=== PATIENT | male | born 1955 | race Caucasian/White ===

== ENCOUNTER 2018-06-09 08:58 | Inpatient (IN) | payer OTHER ==
[2018-05-27 12:45] VITALS: BMI 32.1
--- NOTE | 2018-06-09 07:50 | HP ---
Admitting History and Physical - Admission Chief Complaint: right hip osteoarthritis x years History of Present Illness: 62 year old male presents in regard to her right hip. Long-standing history of right hip osteoarthritis. Patient complains of pain, limited range of motion, difficulty ambulating, and difficulty with activities of daily living. Patient has failed conservative treatment options including PO medications, activity modification, injections, and exercise programs. At this point, patient like to proceed with surgical intervention, right total hip arthroplasty MAKOplasty. History Source: Patient - Past Medical History Cardiovascular: Yes: HTN - Past Surgical History Additional Past Surgical History: See written history & physical. - Smoking History Smoking history: Never smoked Have you smoked in the past 12 months: No - Alcohol/Substance Use Hx Alcohol Use: Yes (OCCASIONALLY) Home Medications - Allergies Allergies/Adverse Reactions: Allergies Allergy/AdvReac Type Severity Reaction Status Date / Time No Known Allergies Allergy Verified 05/27/18 12:30 - Home Medications Home Medications: Ambulatory Orders Diclofenac Sodium 25 mg PO DAILY 05/27/18 Herbal Drugs [Colon Herbal Cleanser] 1 each PO DAILY 05/27/18 Lisinopril 10 mg PO DAILY 05/27/18 Oxycodone HCl/Acetaminophen [Oxycodone-Acetaminophen 10-325] 1 each PO Q4H PRN 05/27/18 Psyllium Husk 1,000 gm MC DAILY 05/27/18 Review of Systems - Review of Systems Musculoskeletal: reports: Decreased ROM (right hip), Joint Pain (right hip) Physical Examination Constitutional: Yes: Well Nourished, No Distress Eyes: Yes: Conjunctiva Clear HENT: Yes: Atraumatic Neck: Yes: Supple Cardiovascular: Yes: Regular Rate and Rhythm Respiratory: Yes: Regular Gastrointestinal: Yes: Soft ...Rectal Exam: Yes: Deferred Musculoskeletal: Yes: Joint Stiffness (right hip) Assessment/Plan 62 year old male presents in regard to her right hip. Long-standing history of right hip osteoarthritis. Patient complains of pain, limited range of motion, difficulty ambulating, and difficulty with activities of daily living. Patient has failed conservative treatment options including PO medications, activity modification, injections, and exercise programs. At this point, patient like to proceed with surgical intervention, right total hip arthroplasty MAKOplasty. Pros, cons, risks, benefits, and alternatives of a right total hip arthroplasty MAKOplasty were discussed with the patient at length. Patient confirms his understanding and consents to proceed with a right total hip arthroplasty MAKOplasty.
[~2018-06-09 08:58] MED LIST: CEFAZOLIN 2 GM in DEXTROSE 5%-WATER - 50 ML IVPB ONE; CELECOXIB 200 MG CAPSULE PO ONE; GABAPENTIN 300 MG CAPSULE (FP) PO ONE; PANTOPRAZOLE 40 MG TABLET (FP) PO ONE; ROPIVICAINE 0.2%/MORPH PF/KETOROLAC - 51ML DISP.SYRINGE IA ONE; TRANEXAMIC ACID 1000 MG/10 ML VIAL IVPUSH ONE; oxyCODONE HCL 10 MG SUSTAINED ACTING TABLET PO ONE
[2018-06-09] MEDS ORDERED: MIDAZOLAM HCL 2 MG/2 ML SINGLE DOSE VIAL ONE ×3 (10:20→12:44)
[2018-06-09] MEDS ORDERED: DEXAMETHASONE SOD PHOSPHATE/PF 10 MG/ML SDV ONE (10:20)
[2018-06-09] MEDS ORDERED: BUPIVACAINE HCL/PF (5 MG/ML) 30 ML VIAL IJ ONE (10:21)
[2018-06-09] MEDS ORDERED: LIDOCAINE 1% P/F 10 MG/ML VIAL ONE (10:21)
[2018-06-09] MEDS ORDERED: ONDANSETRON 4 MG/2 ML VIAL ONE (10:56)
[2018-06-09] MEDS ORDERED: PROPOFOL 20 ML ONE ×4 (10:56→13:12)
[2018-06-09] MEDS ORDERED: LIDOCAINE HCL/PF 2% SDV 5ML VIAL ONE (10:56)
[2018-06-09] MEDS ORDERED: DEXAMETHASONE SOD PHOSPHATE 4 MG/1 ML VIAL ONE (10:56)
[2018-06-09] MEDS ORDERED: ceFAZolin SODIUM 1 GM VIAL ONE ×2 (10:56→11:46)
[2018-06-09] MEDS ORDERED: BUPIVACAINE HCL/PF 0.5% (5MG/ML) 10 ML VIAL ONE (10:59)
[2018-06-09] MEDS ORDERED: VANCOMYCIN 1,000 MG VIAL (RESTRICTED TO ID ONLY) ONE (11:46)
[2018-06-09] MEDS ORDERED: ONDANSETRON 4 MG/2 ML VIAL IVPUSH PRN ×2 (13:52→17:23)
[2018-06-09] MEDS ORDERED: oxyCODONE HCL 5 MG TABLET PO PRN (13:52)
[2018-06-09] MEDS ORDERED: LACTATED RINGERS SOLUTION 1,000 ML IV SCH ×2 (14:00→17:30)
[2018-06-09] MEDS ORDERED: ACETAMINOPHEN 325 MG TABLET (FP) PO SCH (14:00)
--- NOTE | 2018-06-09 16:14 | SURG ---
Surgery Mail Messenger Note Mail Messenger: Tayo Claudio PA-C Date of Service: 06/09/18 Diagnosis: Right hip osteoarthritis Procedure: Right total hip replacement, DMITRY Malone was present for the entirety of the operative procedure. For further detail, please refer to operative report. Visit type - Case Type Case Type: Scheduled - Emergency Emergency Visit: No - New patient This patient is new to me today: Yes Date on this admission: 06/09/18
[2018-06-09] MEDS ORDERED: traMADol HCL 50 MG TABLET ONE (16:35)
[2018-06-09] MEDS ORDERED: KETOROLAC TROMETHAMINE 30 MG/1 ML VIAL ONE (16:35)
[2018-06-09] MEDS ORDERED: ACETAMINOPHEN INJECTION 100 ML IVPB ONE (16:35)
[2018-06-09] MEDS ORDERED: traMADol HCL 50 MG TABLET PO ONE (16:40)
[2018-06-09] MEDS ORDERED: KETOROLAC TROMETHAMINE 30 MG/1 ML VIAL IVPUSH ONE (16:45)
[2018-06-09] MEDS ORDERED: ACETAMINOPHEN 1000 MG/100 ML VIAL (NON FORMULARY) IVPB ONE ×2 (16:50→17:22)
[2018-06-09] MEDS ORDERED: MAGNESIUM HYDROX 2400MG/30ML ORAL SUSPENSION 30 ML CUP PO PRN (17:23)
[2018-06-09] MEDS ORDERED: KETOROLAC TROMETHAMINE 30 MG/1 ML VIAL IVPUSH SCH (17:30)
--- NOTE | 2018-06-09 17:47 | OP ---
Operative Note - Note: Operative Date: 06/09/18 Pre-Operative Diagnosis: right hip OA Operation: Right DMITRY IRAM Post-Operative Diagnosis: Same as Pre-op Surgeon: Yoan Peraza Structural Manager: Tayo Claudio Anesthesia: Spinal Estimated Blood Loss (mls): 300
[2018-06-09] MEDS: CEFAZOLIN 2 GM/D5W 2 GM/50 ML ML IVPB SCH (18:48)
[2018-06-09] MEDS: ASCORBIC ACID 500 MG TABLET (FP) PO SCH (21:28)
[2018-06-09] MEDS: SENNOSIDES/DOCUSATE COMBO (SENNA PLUS) TABLET (UD) PO SCH (21:28)
[2018-06-09] MEDS: oxyCODONE HCL 10 MG SUSTAINED ACTING TABLET PO SCH (21:28)
[2018-06-09] MEDS: CELECOXIB 200 MG CAPSULE PO SCH (21:28)
[2018-06-09] MEDS: GABAPENTIN 300 MG CAPSULE (FP) PO SCH (21:29)
[2018-06-09] MEDS: traMADol HCL 50 MG TABLET PO SCH (21:35)
[2018-06-09] MEDS: KETOROLAC TROMETHAMINE 30 MG/1 ML VIAL IVPUSH SCH (21:35)
[2018-06-09] MEDS: ACETAMINOPHEN 325 MG TABLET (FP) PO SCH (23:45)
[2018-06-10] MEDS ORDERED: DEXAMETHASONE SOD PHOSPHATE 10 MG/1 ML VIAL IVPB ONE
[2018-06-10] MEDS: CEFAZOLIN 2 GM/D5W 2 GM/50 ML ML IVPB SCH (03:13)
[2018-06-10] MEDS: traMADol HCL 50 MG TABLET PO SCH ×5 (04:30→22:39)
[2018-06-10] MEDS: KETOROLAC TROMETHAMINE 30 MG/1 ML VIAL IVPUSH SCH ×3 (04:30→16:34)
[2018-06-10] MEDS: ACETAMINOPHEN 325 MG TABLET (FP) PO SCH ×4 (05:30→21:54)
[2018-06-10 08:04] LABS: HEMATOCRIT 37.1 % (35.4-49); HEMOGLOBIN 12.4 GM/dl (11.7-16.9); MCH 30.3 pg (25.7-33.7); MCHC 33.5 g/dl (32.0-35.9); MEAN CELL VOLUME 90.4 fl (80-96); PLATELET COUNT 201 K/MM3 (134-434); RDW 13.6 % (11.9-15.9); WHITE BLOOD COUNT 11.6 K/mm3 (4.0-10.8)
[2018-06-10 08:09] LABS: ANION GAP 8 MMOL/L (8-16); BLOOD UREA NITROGEN 21 mg/dl (7-18); CALCIUM 8.2 mg/dl (8.5-10); CHLORIDE 101 mmol/L (98-107); CO2 24 mmol/L (21-32); CREATININE 0.8 mg/dl (0.55-1.3); GLUCOSE,RANDOM 139 mg/dl (74-106); POTASSIUM 4.9 mmol/L (3.5-5.1); SODIUM 133 mmol/L (136-145)
[2018-06-10] MEDS: oxyCODONE HCL 5 MG TABLET PO PRN ×2 (08:28→14:35)
[2018-06-10] MEDS: ASPIRIN 325 MG TABLET PO SCH (08:29)
[2018-06-10] MEDS: MULTIVITAMINS (DAILY MVI) TABLET (FP) PO SCH (10:26)
[2018-06-10] MEDS: SENNOSIDES/DOCUSATE COMBO (SENNA PLUS) TABLET (UD) PO SCH ×2 (10:26→21:52)
[2018-06-10] MEDS: GABAPENTIN 300 MG CAPSULE (FP) PO SCH ×3 (10:27→22:41)
[2018-06-10] MEDS: CELECOXIB 200 MG CAPSULE PO SCH ×3 (10:27→22:40)
[2018-06-10] MEDS: ASCORBIC ACID 500 MG TABLET (FP) PO SCH ×2 (10:28→21:52)
[2018-06-10] MEDS: LISINOPRIL 10 MG TABLET (FP) PO SCH (10:28)
[2018-06-10] MEDS: PANTOPRAZOLE 40 MG TABLET (FP) PO SCH (10:28)
[2018-06-10] MEDS: oxyCODONE HCL 10 MG SUSTAINED ACTING TABLET PO SCH ×3 (10:28→22:39)
--- NOTE | 2018-06-10 14:43 | PN ---
Progress Note (short form) - Note Progress Note: 62M POD1 s/p R THR under spinal anesthetic with peripheral nerve block doing well. Pt states that pain is well controlled and reports no anesthetic complications. AVSS. Motor and sensory function intact in bilateral lower extremities.
[2018-06-10] MEDS: MAG HYDROX/AL HYDROX/SIMETH 30 ML UNIT-DOSE CUP PO PRN ×2 (17:09→21:59)
--- NOTE | 2018-06-10 18:55 | PN ---
Progress Note (short form) - Note Progress Note: Pt seen and examined Saturday. Doing well. AVSS Laboratory Tests 06/10/18 06/10/18 06/11/18 07:14 07:14 07:01 WBC 11.6 H 8.3 Hgb 12.4 11.3 L Hct 37.1 32.5 L Plt Count 201 182 Sodium 133 L Potassium 4.9 Chloride 101 Carbon Dioxide 24 Anion Gap 8 BUN 21 H Creatinine 0.8 Creat Clearance w eGFR 97.95 Random Glucose 139 H Calcium 8.2 L Gen: NAD RLE: c/d/i, NVID A/P POD#1 s/p R IRAM PT/OOB D/C home Saturday
[2018-06-11] MEDS: traMADol HCL 50 MG TABLET PO SCH ×2 (05:00→10:24)
[2018-06-11] MEDS: ACETAMINOPHEN 325 MG TABLET (FP) PO SCH ×2 (05:00→09:50)
[2018-06-11 06:29] VITALS: PULSE 66
[2018-06-11 07:10] LABS: HEMATOCRIT 32.5 % (35.4-49); HEMOGLOBIN 11.3 GM/dl (11.7-16.9); MCH 31.1 pg (25.7-33.7); MCHC 34.7 g/dl (32.0-35.9); MEAN CELL VOLUME 89.7 fl (80-96); MEAN PLT VOLUME 8.3 fl (7.5-11.1); PLATELET COUNT 182 K/MM3 (134-434); RBC 3.62 M/mm3 (4.00-5.60); RDW 13.4 % (11.9-15.9); WHITE BLOOD COUNT 8.3 K/mm3 (4.0-10.8)
[2018-06-11] MEDS: ASPIRIN 325 MG TABLET PO SCH (08:34)
[2018-06-11] MEDS: GABAPENTIN 300 MG CAPSULE (FP) PO SCH (09:52)
[2018-06-11] MEDS: CELECOXIB 200 MG CAPSULE PO SCH (09:52)
[2018-06-11] MEDS: SENNOSIDES/DOCUSATE COMBO (SENNA PLUS) TABLET (UD) PO SCH (09:53)
[2018-06-11] MEDS: PANTOPRAZOLE 40 MG TABLET (FP) PO SCH (09:53)
[2018-06-11] MEDS: MULTIVITAMINS (DAILY MVI) TABLET (FP) PO SCH (09:53)
[2018-06-11] MEDS: ASCORBIC ACID 500 MG TABLET (FP) PO SCH (09:53)
[2018-06-11] MEDS: oxyCODONE HCL 10 MG SUSTAINED ACTING TABLET PO SCH (10:24)
--- NOTE | 2018-06-11 10:35 | DS ---
Physical Examination Vital Signs: Vital Signs Temperature 97.6 F 06/11/18 06:00 Pulse Rate 66 06/11/18 06:00 Respiratory Rate 19 06/11/18 06:00 Blood Pressure 95/51 L 06/11/18 06:00 O2 Sat by Pulse Oximetry (%) 98 06/11/18 06:27 Labs: CBC, BMP 06/11/18 07:01 06/10/18 07:14 Discharge Summary Reason For Visit: RIGHT HIP OSTEOARTHRITIS Current Active Problems Osteoarthritis of right hip (Acute) Procedures: Principal: right DMITRY IRAM Hospital Course: Admitted for elective surgery. Procedure performed without complications. Pt received postoperative antibiotic prophylaxis and DVT ppx. Ambulated with physical therapy. Stable for discharge home with outpatient followup. Condition: Stable - Instructions Diet, Activity, Other Instructions: Dr Peraza - Hip Replacement Instructions Keep the Aquacel dressing on until removed by Dr. Peraza in 10-14 days - it is antibacterial and waterproof and you can shower with it on. Call the office for a follow-up appointment with Dr. Peraza in 10-14 days. ~ Take one Aspirin 325mg daily for 6 weeks to prevent blood clots in your legs. Take one Pantoprazole 40mg daily for 6 weeks to protect against heartburn and ulcers. Take Cephalexin (antibiotic) 3x/day for 10 days to help prevent skin infection. Take Celebrex 200mg twice daily for 30 days to reduce swelling and inflammation. Take a multivitamin, stool softener and extra Vitamin C supplement daily. For pain: Resume taking your Oxycodone home medication. *Mild pain: Take 1 Tramadol tablet every 4 hours as needed. Moderate/Severe pain: Take 1 Tramadol tablet and 1 Oxycodone tablet every 4 hours as needed. Activity: You can put as much weight on the operative leg as you want. For the first 6 weeks, all you need to do is walk around the house, go up/down stairs, and sit down/get up. After 6 weeks when everything is healed (and bone has grown into the implant) you will be sent for more intensive outpatient physical therapy. Always use a walker or cane for balance and to prevent falls. Expect to see swelling / bruising from the operative site all the way down to your toes. Wear the Compression stocking on the operative side during the day to minimize how much swelling there is in your foot/ankle. Don't wear the stocking at night. You don't have to wear the stocking on the other side. Disposition: VNS/HOME HEALTH CARE - Home Medications Comprehensive Discharge Medication List: Ambulatory Orders Herbal Drugs [Colon Herbal Cleanser] 1 each PO DAILY 05/27/18 Lisinopril 10 mg PO DAILY 05/27/18 Oxycodone HCl/Acetaminophen [Oxycodone-Acetaminophen 10-325] 1 each PO Q4H PRN 05/27/18 Psyllium Husk 1,000 gm MC DAILY 05/27/18 Ascorbic Acid [Vitamin C -] 500 mg PO BID tablet 06/11/18 Aspirin [ASA -] 325 mg PO DAILY@0800 tablet 06/11/18 Celecoxib [CeleBREX -] 200 mg PO BID #60 capsule 06/11/18 Cephalexin Monohydrate [Keflex -] 500 mg PO TID #30 capsule 06/11/18 Multivitamins [Multivit ([facility] Formulary)] 1 tab PO DAILY tab 06/11/18 Pantoprazole Sodium [Protonix -] 40 mg PO DAILY #40 tablet.ec 06/11/18 Sennosides/Docusate Sodium [Pericolace -] 1 tablet PO BID tablet 06/11/18 traMADol HCL [Ultram -] 50 mg PO Q4H PRN #42 tablet MDD 6 06/11/18
[2018-06-11 10:37] VITALS: BP 112/68; TEMP 98
[2018-06-11] MEDS: LISINOPRIL 10 MG TABLET (FP) PO SCH (13:24)
--- NOTE | 2018-06-11 15:43 | PATH ---
Surgical Pathology Report Patient Name: JEYSON CASTORENA Med. Rec. #: [id number] /Age/Gender: 1955 (Age: 62) / M Account: [id number] Location: [facility] MED-SURG Taken: 06/09/2018 Received: 06/09/2018 Reported: 06/11/2018 Physicians: Yoan Peraza M.D. Specimen(s) Received RIGHT FEMORAL HEAD Clinical History Right hip osteoarthritis Final Diagnosis BONE, FEMORAL HEAD, RIGHT, TOTAL HIP REPLACEMENT MAKOPASTY: BONE WITH DEGENERATIVE JOINT DISEASE. Electronically Signed Claudine Parmar M.D. Gross Description Received in formalin, labeled "right femoral head," is a 5.5 x 5.5 x 4.7 cm. femoral head with a 1.3 cm in length portion of femoral neck attached. The margin of resection is smooth. No areas of eburnation are identified. The articular surface is pruett-yellow and diffusely granular. The underlying trabecular bone is yellow and hard. A fraud representative section is submitted in one cassette, following decalcification. /06/10/2018 [facility]06/10/2018
--- NOTE | 2018-06-26 11:26 | SPEC ---
DATE OF OPERATION: 06/09/2018 PREOPERATIVE DIAGNOSIS: Right hip osteoarthritis. POSTOPERATIVE DIAGNOSIS: Right hip osteoarthritis. PROCEDURE: Right total hip replacement with MAKOplasty, robotic navigation. ATTENDING SURGEON: Shyann Aguayo MD PAYMENT PROCESSOR: KELY Correa ANESTHESIA: Spinal plus sedation. ESTIMATED BLOOD LOSS: 300 mL. COMPLICATIONS: None. DISPOSITION: The patient was transferred to the PACU in stable condition. IMPLANTS USED: [place] Accolade size 6 femoral component, [place] Trident 58-mm acetabular component, MDM bipolar head ball with +4-mm offset inner ceramic head. INDICATIONS: This is a 62-year-old male who presented to the office complaining of severe right hip pain. He was seen and examined by Dr. Aguayo and diagnosed with severe right hip osteoarthritis. The patient was initially treated nonoperatively with injections, medications and physical therapy but continued to have severe pain and ambulatory dysfunction. He was therefore indicated for a right total hip replacement. The risks, benefits and alternatives to the procedure were explained to the patient in great detail and he elected to proceed with surgery. On the day of surgery the patient was taken to the operating room and placed on the OR table. Spinal anesthesia was administered by the anesthesiologist. The patient was then positioned in the lateral decubitus position on the table and all bony prominences were padded. An axillary roll was placed. The operative hip was then prepped and draped in the usual sterile fashion and intravenous antibiotics were given for infection prophylaxis. A surgical timeout was then performed with the team, and the patients identity, procedure, side, availability of implants and the administration of antibiotics were confirmed. An approximately 15-cm longitudinal incision was made through the skin centered on the greater trochanter of the hip. This dissection was carried down through the subcutaneous tissues to the deep fascia. This fascia was then incised and a Cobra was placed around the inferior femoral neck. Electrocautery was used to reflect the anterior 40% of the gluteus medius and minimus starting at the musculotendinous junction and leaving a cuff for closure. This was reflected to reveal the capsule of the hip joint. An anterior capsulectomy was performed and the femoral head and neck were visualized. Grade 4 changes were noted diffusely throughout the joint. At this point, 3 small stab incisions were made superior to the main incision along the iliac crest. Three self-drilling Steinmann pins were then placed and the DMITRY pelvic array was attached. Reference points on the limb were then entered into the robotic device and the limb length deficiency, offset, and femoral neck resection level were then calculated by the software. The hip was then dislocated with traction and external rotation. An oscillating saw was used to make the femoral neck cut at the level previously templated, and the femoral head was removed. Attention was then turned to the acetabulum. Retractors were then placed around the acetabulum and the labrum was removed. An acetabular checkpoint pin and the boomtrain software were used to register the contours of the acetabulum. The acetabulum was then reamed in a single stage to the preoperatively templated size using the boomtrain robotic arm. The appropriately sized cup was then impacted and had solid fixation as well as the preset inclination and version of 40 and 20 degrees, respectively. A polyethylene liner was then placed in the cup. Attention was then turned back to the femur, which was externally rotated for improved visualization. A femoral neck elevator was used to present the femoral neck cut, a box osteotome was used to enter the femoral canal, and a canal finder was used to go down the femoral shaft. The DMITRY broaches were used sequentially until the optimal scratch fit was achieved. This correlated with the preoperatively templated size. From here, several different offset head and neck configurations were tested until excellent stability and length were obtained. These measurements were quantified using the boomtrain software. All trial components were then removed, the femur was copiously irrigated, and the final components were placed. Leg length and stability were checked again and found to be excellent. Irrigation was performed again. Wound closure was started by repairing the abductor muscles with a No. 2 FiberWire stitch in a Krackow configuration passed through bone tunnels in the greater trochanter and tied over a bony bridge. This repair was then reinforced with a 0 V-Loc 180 barbed suture. Next, No. 1 Polysorb and 0 V-Loc 180 were used to close the fascia. The deep subcutaneous tissue was closed with No. 1 Polysorb sutures, and 2-0 Polysorb was used for the superficial subcutaneous tissue. The skin was closed using both 3-0 V-Loc 90 suture in a running subcuticular fashion and SwiftSet skin adhesive. The DMITRY array and pins were removed from the iliac crest and the stab incision sites were irrigated and closed with 4-0 Polysorb sutures and SwiftSet skin adhesive. Once this was completed, a sterile dressing was applied. The patient was then awakened and taken to the PACU in stable condition. SHYANN AGUAYO M.D. [id number]
== END 2018-06-11 13:08 | disposition home health service (06) | DRG 301 ==
LOC: FM/S 08:58
PROVIDERS: ADMIT Student in an Organized Health Care Education/Training Program; ATTEND Student in an Organized Health Care Education/Training Program
PROC: 8E0W0CZ Robotic Assisted Procedure of Trunk Region, Open Approach (ICD-10-PCS; 2018-06-09)
PROC: 0SR90JZ Replacement of Right Hip Joint with Synthetic Substitute, Open Approach (ICD-10-PCS; principal; 2018-06-09 13:36)
DX: M16.11 Unilateral primary osteoarthritis, right hip (principal); I10 Essential (primary) hypertension
CPT/HCPCS: 36415; 73502-TC-RT-FY; 80048; 85027; 88305-TC; 88311-TC; 94760; 97116-GP; 97163-GP; J0131; J1100